=== PATIENT | female | born 1955 | race Two or more races ===

== ENCOUNTER 2018-06-04 17:41 | Emergency (ER) | payer MEDICAID ==
[~2018-06-04] VITALS: Ht 157.5 cm; Wt 77.0 kg
[2018-06-04] MEDS ORDERED: ATENOLOL 25MG TABLET PO ONE (23:15)
[2018-06-04 23:34] LABS: BASOPHILS % 0.7 % (0.0-2.0); EOSINOPHILS % 3.4 % (0.0-5.0); HEMATOCRIT. 41.5 % (36.0-48.0); LYMPHOCYTES % 50.1 % (20.0-50.0); MEAN CORPUSCULAR HEMOGLOBIN 29.3 pg (28.0-32.0); MEAN CORPUSCULAR VOLUME 86.6 fL (81.0-99.0); MEAN PLATELET VOLUME 8.3 fl (7.4-10.4); MONOCYTES % 8.8 % (2.0-8.0); PLATELET 247 x1000/uL (130-400); RED BLOOD CELL COUNT 4.79 mill/uL (4.2-5.4); RED CELL DISTRIBUTION WIDTH 13.2 % (11.6-14.6)
[2018-06-04 23:40] LABS: CHLORIDE 108 mEq/L (98-107)
[2018-06-04 23:45] LABS: PROTHROMBIN TIME 9.8 sec (9.6-11.0)
[2018-06-04 23:55] LABS: CLARITY URINE CLEAR (CLEAR); COLOR URINE YELLOW (YELLOW); KETONES URINE NEGATIVE (NEGATIVE); LEUKOCYTE ESTERASE URINE NEGATIVE (NEGATIVE); NITRITE URINE NEGATIVE (NEGATIVE); OCCULT BLOOD URINE TRACE (NEGATIVE); PROTEIN URINE NEGATIVE (NEGATIVE); SPECIFIC GRAVITY URINE 1.019 (1.005-1.030); UROBILINOGEN URINE 0.2 E.U./dL (0.2-1.0)
[2018-06-05 03:00] VITALS: BP 149/82
== END 2018-06-05 03:00 | disposition home or self-care (01) ==
LOC: ER 17:41
DX: I10 Essential (primary) hypertension (principal)
CPT/HCPCS: 36415; 71045; 83880; 84484; 93005; 99284

== ENCOUNTER 2018-10-31 13:10 | Emergency (ER) | payer MEDICAID ==
[~2018-10-31] VITALS: Ht 160 cm; Wt 80.0 kg
[2018-10-31] MEDS ORDERED: CLONIDINE 0.2MG TABLET PO ONE (14:15)
[2018-10-31] MEDS ORDERED: ATENOLOL 25MG TABLET PO ONE (14:15)
[2018-10-31 14:47] LABS: BASOPHILS % 0.6 % (0.0-2.0); EOSINOPHILS % 1.8 % (0.0-5.0); HEMATOCRIT. 39.5 % (36.0-48.0); LYMPHOCYTES % 34.8 % (20.0-50.0); MEAN CORPUSCULAR VOLUME 88.1 fL (81.0-99.0); MEAN PLATELET VOLUME 8.4 fl (7.4-10.4); MONOCYTES % 7.4 % (2.0-8.0); NEUTROPHILS % 55.4 % (40.0-76.0); PLATELET 223 x1000/uL (130-400); RED BLOOD CELL COUNT 4.48 mill/uL (4.2-5.4)
[2018-10-31 14:50] LABS: CHLORIDE 108 mEq/L (98-107)
[2018-10-31 14:53] LABS: PARTIAL THROMBOPLASTIN TIME 28.7 sec (23.4-31.0); PROTHROMBIN TIME 10.1 sec (9.6-11.0)
[2018-10-31] MEDS ORDERED: TRANEXAMIC ACID 1,000 MG/10 ML IV ONE (15:45)
[2018-10-31] MEDS ORDERED: HYDROCODONE/ACETAMINOPHEN 5/325MG TABLET PO ONE (16:00)
[2018-10-31] MEDS ORDERED: ONDANSETRON 4MG ODT PO ONE (16:00)
[2018-10-31 16:33] VITALS: BP 141/79
== END 2018-10-31 16:35 | disposition home or self-care (01) ==
LOC: ER 13:10
DX: R04.0 Epistaxis (principal); I10 Essential (primary) hypertension
CPT/HCPCS: 36415; 80053; 83880; 84484; 85025; 85610; 85730; 93005; 96374; 99284; Q0162

== ENCOUNTER 2018-11-01 10:34 | Emergency (ER) | payer MEDICAID ==
[~2018-11-01] VITALS: Ht 154.9 cm; Wt 79.0 kg
[2018-11-01] MEDS ORDERED: CLONIDINE 0.1MG TABLET PO ONE (11:00)
[2018-11-01] MEDS ORDERED: ATENOLOL 25MG TABLET PO ONE (11:00)
[2018-11-01] MEDS ORDERED: HYDROCODONE/ACETAMINOPHEN 5/325MG TABLET PO ONE (11:15)
[2018-11-01 13:24] VITALS: BP 114/60
== END 2018-11-01 14:18 | disposition home or self-care (01) ==
LOC: ER 10:34
DX: I16.0 Hypertensive urgency (principal); I10 Essential (primary) hypertension
CPT/HCPCS: 99283

== ENCOUNTER 2018-11-02 02:58 | Emergency (ER) | payer MEDICAID ==
[~2018-11-02] VITALS: Ht 157.5 cm; Wt 79.0 kg
[2018-11-02 03:40] LABS: HEMATOCRIT 36.5 % (36.0-48.0); HEMOGLOBIN 12.3 g/dL (12.0-16.0); MEAN CORPUSCULAR HEMOGLOBIN 29.3 pg (28.0-32.0); MEAN CORPUSCULAR VOLUME 86.8 fL (81.0-99.0); PLATELET 214 x1000/uL (130-400); RED CELL DISTRIBUTION WIDTH 13.7 % (11.6-14.6)
[2018-11-02 03:46] LABS: CHLORIDE 111 mEq/L (98-107)
[2018-11-02 06:00] VITALS: BP 131/65
== END 2018-11-02 06:00 | disposition home or self-care (01) ==
LOC: ER 02:58
DX: R04.0 Epistaxis (principal); I10 Essential (primary) hypertension
CPT/HCPCS: 36415; 85027; 99283

== ENCOUNTER 2018-11-02 07:54 | Emergency (ER) | payer MEDICAID ==
[~2018-11-02] VITALS: Ht 157.5 cm; Wt 79.5 kg
[2018-11-02] MEDS ORDERED: TRANEXAMIC ACID 1,000 MG/10 ML IV ONE (09:30)
[2018-11-02 12:30] VITALS: BP 167/67
[2018-11-02] MEDS ORDERED: OXYMETAZOLINE HCL NASAL SPRAY 15ML BOTHNSTRLS SCH (21:00)
== END 2018-11-02 13:29 | disposition home or self-care (01) ==
LOC: ER 08:02
DX: R04.0 Epistaxis (principal); I10 Essential (primary) hypertension
CPT/HCPCS: 30901; 96374; 99284; A4217; Z7610

== ENCOUNTER 2025-02-09 17:47 | Emergency (ER) | payer MEDICARE, MEDICAID ==
[~2025-02-09] VITALS: Ht 165.1 cm; Wt 77.0 kg
[2025-02-09 17:50] VITALS: BP 174/87; PULSE 69; RESP 18; TEMP 98.7; O2SAT 99
[2025-02-09] MEDS ORDERED: ACETAMINOPHEN 325MG TABLET PO ONE (18:00)
[2025-02-09] MEDS ORDERED: NAPR-677 MT (19:32)
== END 2025-02-09 19:51 | disposition home or self-care (01) ==
LOC: ER 17:47
DX: S09.90XA Unspecified injury of head, initial encounter (principal); I10 Essential (primary) hypertension; Z79.1 Long term (current) use of non-steroidal anti-inflammatories (NSAID); W01.0XXA Fall on same level from slipping, tripping and stumbling without subsequent striking against object, initial encounter; Y93.89 Activity, other specified; Y92.512 Supermarket, store or market as the place of occurrence of the external cause; Y99.8 Other external cause status
CPT/HCPCS: 99284